=== PATIENT | male | born 1985 | race Caucasian/White ===

== ENCOUNTER 2021-02-13 11:27 | Emergency (ER) | payer OTHER ==
[~2021-02-13] VITALS: Ht 193 cm; Wt 125.2 kg
== END 2021-02-13 14:44 | disposition home or self-care (01) ==
LOC: ER1 11:27
DX: U07.1 COVID-19 (principal); I10 Essential (primary) hypertension; Z23 Encounter for immunization
CPT/HCPCS: 99283; M0243